=== PATIENT | female | born 1985 | race Caucasian/White ===

== ENCOUNTER 2018-07-15 17:43 | Emergency (ER) | payer SELFPAY, MEDICAID | END 2018-07-15 19:50 | disposition left against medical advice (07) | LOC: FTE 19:50 | DX: Z53.21 Procedure and treatment not carried out due to patient leaving prior to being seen by health care provider (principal) ==

== ENCOUNTER → 2018-07-15 | Outpatient (CLI) | payer MEDICAID | END | disposition home or self-care (01) | LOC: U/S 17:57 | DX: O36.70X0 Maternal care for viable fetus in abdominal pregnancy, unspecified trimester, not applicable or unspecified (principal); Z3A.00 Weeks of gestation of pregnancy not specified | CPT/HCPCS: 76801; 76817 ==

== ENCOUNTER 2018-12-12 10:13 | Inpatient (IN) | payer MEDICAID ==
[2018-12-12 10:54] LABS: ADD UMIC NO; UR ASCORBIC ACID NEGATIVE (NEGATIVE); UR BILIRUBIN (Dip) NEGATIVE (NEGATIVE); UR BLOOD (Dip) NEGATIVE (NEGATIVE); UR CLARITY CLEAR (CLEAR); UR COLOR YELLOW (YELLOW); UR GLUCOSE (Dip) NEGATIVE (NEGATIVE); UR KETONES (Dip) NEGATIVE (NEGATIVE); UR LEUKOCYTE ESTERASE (Dip) NEGATIVE Leu/ul (NEGATIVE); UR NITRITE (Dip) NEGATIVE (NEGATIVE); UR SPECIFIC GRAVITY (Dip) 1.016 (1.003-1.030); UR TOTAL PROTEIN (Dip) NEGATIVE (NEGATIVE); UR UROBILINOGEN (Dip) NEGATIVE (NEGATIVE)
[2018-12-12 11:24] LABS: ADD MAN DIFF? NO
[2018-12-12 11:26] LABS: BASOPHILS % 0.3 % (0.0-2.0); EOSINOPHILS % 0.2 % (0.0-7.0); HEMATOCRIT 33.9 % (37.0-47.0); HEMOGLOBIN 11.2 g/dl (12.0-16.0); LYMPHOCYTES # 1.6 10^3/ul (0.8-2.9); LYMPHOCYTES % 17.5 % (15.0-51.0); MEAN CORPUSCULAR HEMOGLOBIN 30.1 pg (29.0-33.0); MEAN CORPUSCULAR VOLUME 91.1 fl (82.0-101.0); MONOCYTE # 0.4 10^3/ul (0.3-0.9); MONOCYTES % 4.5 % (0.0-11.0); NEUTROPHILS % 76.8 % (39.0-77.0); PLATELET COUNT 324 10^3/UL (140-415); RED BLOOD COUNT 3.72 10^6/ul (4.20-5.40); RED CELL DISTRIBUTION WIDTH 12.9 % (11.5-14.5)
[2018-12-12 11:26] LABS: WHITE BLOOD COUNT 9.1 10^3/ul (4.8-10.8)
[2018-12-12 11:43] LABS: ALANINE AMINOTRANSFERASE 56 IU/L (13-69); ALBUMIN 3.8 g/dl (3.3-4.9); ALBUMIN/GLOBULIN RATIO 1.05; ALKALINE PHOSPHATASE 100 IU/L (42-121); ANION GAP 7 (5-13); ASPARTATE AMINO TRANSFERASE 43 IU/L (15-46); BILIRUBIN,INDIRECT 0.1 mg/dl (0-1.1); BILIRUBIN,TOTAL 0.1 mg/dl (0.2-1.3); BLOOD UREA NITROGEN 7 mg/dl (7-20); CALCIUM 9.7 mg/dl (8.4-10.2); CARBON DIOXIDE 26 mmol/L (21-31); CHLORIDE 105 mmol/L (97-110); CREATININE 0.51 mg/dl (0.44-1.00); Estimated GFR > 60 mL/min (>60); GLUCOSE 101 mg/dl (70-220); POTASSIUM 4.8 mmol/L (3.5-5.1); SODIUM 138 mmol/L (135-144); TOTAL PROTEIN 7.4 g/dl (6.1-8.1)
[2018-12-12] MEDS: TERBUTALINE 1 MG/ML INJ SC (15:14)
[2018-12-12] MEDS: LACTATED RINGER'S 1,000 ML IV ×3 (15:14→21:01)
[2018-12-12] MEDS: MEPERIDINE 50 MG INJ IV (16:38)
[2018-12-12] MEDS: AL HYDROX/MG HYDROX/SIMETH 30 ML CUP PO (20:57)
[2018-12-12] MEDS: FAMOTIDINE 20 MG INJ IV (21:11)
[2018-12-12] MEDS: MEPERIDINE 25 MG INJ IV (22:23)
[2018-12-13] MEDS: LACTATED RINGER'S 1,000 ML IV ×2 (05:18→13:31)
[2018-12-13] MEDS: FAMOTIDINE 20 MG INJ IV (09:00)
[2018-12-13] MEDS: PRENATAL VITAMIN PO (09:49)
== END 2018-12-13 18:45 | disposition home or self-care (01) | DRG 833 ==
LOC: OBT 10:13 → L-D 12-13 04:02 → OBT 18:40 → L-D 18:40
DX: O47.03 False labor before 37 completed weeks of gestation, third trimester (principal); Z3A.30 30 weeks gestation of pregnancy
CPT/HCPCS: 36415; 76817; 76818; 80053; 81003; 85025; 96360; 96361; 96372; 96375

== ENCOUNTER 2019-01-23 17:31 | Outpatient (CLI) | payer MEDICAID ==
[2019-01-23 18:11] LABS: ADD UMIC YES; UR ASCORBIC ACID NEGATIVE (NEGATIVE); UR BACTERIA FEW /HPF (NONE SEEN); UR BILIRUBIN (Dip) NEGATIVE (NEGATIVE); UR BLOOD (Dip) NEGATIVE (NEGATIVE); UR CLARITY CLOUDY (CLEAR); UR COLOR YELLOW (YELLOW); UR GLUCOSE (Dip) NEGATIVE (NEGATIVE); UR KETONES (Dip) NEGATIVE (NEGATIVE); UR LEUKOCYTE ESTERASE (Dip) TRACE Leu/ul (NEGATIVE); UR NITRITE (Dip) NEGATIVE (NEGATIVE); UR RBC 1 /HPF (0-5); UR SPECIFIC GRAVITY (Dip) 1.013 (1.003-1.030); UR SQUAMOUS EPITHELIAL CELL FEW /HPF (FEW); UR TOTAL PROTEIN (Dip) NEGATIVE (NEGATIVE); UR UROBILINOGEN (Dip) NEGATIVE (NEGATIVE); UR WBC 2 /HPF (0-5)
[2019-01-23 18:20] LABS: ADD MAN DIFF? NO
[2019-01-23 18:23] LABS: BASOPHILS % 0.2 % (0.0-2.0); EOSINOPHILS # 0.1 10^3/ul (0.0-0.5); EOSINOPHILS % 1.4 % (0.0-7.0); HEMATOCRIT 34.6 % (37.0-47.0); HEMOGLOBIN 11.6 g/dl (12.0-16.0); LYMPHOCYTES # 2.3 10^3/ul (0.8-2.9); LYMPHOCYTES % 25.2 % (15.0-51.0); MEAN CORPUSCULAR HEMOGLOBIN 29.7 pg (29.0-33.0); MEAN CORPUSCULAR HGB CONC 33.5 g/dl (32.0-37.0); MEAN CORPUSCULAR VOLUME 88.5 fl (82.0-101.0); MEAN PLATELET VOLUME 10.7 fl (7.4-10.4); MONOCYTE # 0.5 10^3/ul (0.3-0.9); MONOCYTES % 5.9 % (0.0-11.0); NEUTROPHILS % 66.9 % (39.0-77.0); PLATELET COUNT 306 10^3/UL (140-415); RED BLOOD COUNT 3.91 10^6/ul (4.20-5.40); RED CELL DISTRIBUTION WIDTH 13.5 % (11.5-14.5)
[2019-01-23 18:29] LABS: RUPTURE FETAL MEMBRANES NEGATIVE (NEGATIVE)
[2019-01-23 18:44] LABS: ALANINE AMINOTRANSFERASE 32 IU/L (13-69); ALBUMIN 3.7 g/dl (3.3-4.9); ALBUMIN/GLOBULIN RATIO 1.02; ALKALINE PHOSPHATASE 113 IU/L (42-121); ANION GAP 11 (5-13); ASPARTATE AMINO TRANSFERASE 25 IU/L (15-46); BILIRUBIN,INDIRECT 0.2 mg/dl (0-1.1); BILIRUBIN,TOTAL 0.2 mg/dl (0.2-1.3); BLOOD UREA NITROGEN 8 mg/dl (7-20); CALCIUM 9.9 mg/dl (8.4-10.2); CARBON DIOXIDE 23 mmol/L (21-31); CHLORIDE 104 mmol/L (97-110); CREATININE 0.48 mg/dl (0.44-1.00); Estimated GFR > 60 mL/min (>60); GLUCOSE 124 mg/dl (70-220); INR 0.91; POTASSIUM 3.8 mmol/L (3.5-5.1); PROTIME 12.4 Sec (11.9-14.9); SODIUM 138 mmol/L (135-144); TOTAL PROTEIN 7.3 g/dl (6.1-8.1); URIC ACID 4.1 mg/dl (3.1-7.9)
[2019-01-23 18:45] LABS: PARTIAL THROMBOPLASTIN TIME 27.7 Sec (23.0-35.0)
== END 2019-01-23 20:15 | disposition home or self-care (01) ==
LOC: OBT 17:31 → L-D 17:32 → OBT 20:15
DX: O42.913 Preterm premature rupture of membranes, unspecified as to length of time between rupture and onset of labor, third trimester (principal); Z3A.36 36 weeks gestation of pregnancy
CPT/HCPCS: 76815; 76818; 80053; 81001; 84112; 84560; 85025; 85384; 85610; 85730

== ENCOUNTER 2019-02-19 19:19 | Inpatient (IN) | payer MEDICAID ==
[2019-02-19 20:34] LABS: ADD UMIC YES; UR ASCORBIC ACID NEGATIVE (NEGATIVE); UR BACTERIA FEW /HPF (NONE SEEN); UR BILIRUBIN (Dip) NEGATIVE (NEGATIVE); UR BLOOD (Dip) NEGATIVE (NEGATIVE); UR CLARITY CLOUDY (CLEAR); UR COLOR YELLOW (YELLOW); UR GLUCOSE (Dip) NEGATIVE (NEGATIVE); UR KETONES (Dip) NEGATIVE (NEGATIVE); UR LEUKOCYTE ESTERASE (Dip) 3+ Leu/ul (NEGATIVE); UR MUCUS FEW /HPF (NONE SEEN); UR NITRITE (Dip) NEGATIVE (NEGATIVE); UR RBC 1 /HPF (0-5); UR SPECIFIC GRAVITY (Dip) 1.021 (1.003-1.030); UR SQUAMOUS EPITHELIAL CELL MODERATE /HPF (FEW); UR TOTAL PROTEIN (Dip) NEGATIVE (NEGATIVE); UR UROBILINOGEN (Dip) NEGATIVE (NEGATIVE); UR WBC 12 /HPF (0-5)
[2019-02-19] MEDS ORDERED: LACTATED RINGER'S 1,000 ML IV (21:55)
[2019-02-19] MEDS ORDERED: OXYTOCIN 30 UNITS/LR 500 ML IV ×2 (22:00)
[2019-02-19] MEDS ORDERED: CARBOPROST 250 MCG INJ IM (22:00)
[2019-02-19] MEDS: MINERAL OIL LIGHT 10 ML VIAL TOP (22:00)
[2019-02-19] MEDS ORDERED: MISOPROSTOL 200 MCG TAB PR (22:00)
[2019-02-19] MEDS ORDERED: IBUPROFEN 600 MG TAB PO (22:00)
[2019-02-19] MEDS ORDERED: BUTORPHANOL 2 MG INJ IV ×2 (22:00)
[2019-02-19] MEDS ORDERED: METHYLERGONOVINE 0.2 MG INJ IM (22:00)
[2019-02-19] MEDS: AL HYDROX/MG HYDROX/SIMETH 30 ML CUP PO (22:33)
[2019-02-19] MEDS: LACTATED RINGER'S 1,000 ML IV (22:57)
[2019-02-19 23:25] LABS: ADD MAN DIFF? NO
[2019-02-19 23:27] LABS: BASOPHILS % 0.2 % (0.0-2.0); EOSINOPHILS # 0.1 10^3/ul (0.0-0.5); EOSINOPHILS % 0.9 % (0.0-7.0); HEMATOCRIT 35.5 % (37.0-47.0); HEMOGLOBIN 11.9 g/dl (12.0-16.0); LYMPHOCYTES # 2.9 10^3/ul (0.8-2.9); LYMPHOCYTES % 28.1 % (15.0-51.0); MEAN CORPUSCULAR HEMOGLOBIN 29.9 pg (29.0-33.0); MEAN CORPUSCULAR HGB CONC 33.5 g/dl (32.0-37.0); MEAN CORPUSCULAR VOLUME 89.2 fl (82.0-101.0); MEAN PLATELET VOLUME 11.8 fl (7.4-10.4); MONOCYTE # 0.7 10^3/ul (0.3-0.9); NEUTROPHIL # 6.6 10^3/ul (1.6-7.5); NEUTROPHILS % 63.3 % (39.0-77.0); PLATELET COUNT 288 10^3/UL (140-415); RED BLOOD COUNT 3.98 10^6/ul (4.20-5.40); RED CELL DISTRIBUTION WIDTH 13.9 % (11.5-14.5)
[2019-02-19 23:27] LABS: WHITE BLOOD COUNT 10.4 10^3/ul (4.8-10.8)
[2019-02-19 23:45] LABS: ALANINE AMINOTRANSFERASE 20 IU/L (13-69); ALBUMIN 3.7 g/dl (3.3-4.9); ALBUMIN/GLOBULIN RATIO 1.15; ALKALINE PHOSPHATASE 122 IU/L (42-121); ANION GAP 9 (5-13); ASPARTATE AMINO TRANSFERASE 25 IU/L (15-46); BILIRUBIN,INDIRECT 0.2 mg/dl (0-1.1); BILIRUBIN,TOTAL 0.2 mg/dl (0.2-1.3); BLOOD UREA NITROGEN 13 mg/dl (7-20); CALCIUM 9.4 mg/dl (8.4-10.2); CARBON DIOXIDE 20 mmol/L (21-31); CHLORIDE 108 mmol/L (97-110); Estimated GFR > 60 mL/min (>60); GLUCOSE 108 mg/dl (70-220); POTASSIUM 3.9 mmol/L (3.5-5.1); SODIUM 137 mmol/L (135-144); TOTAL PROTEIN 6.9 g/dl (6.1-8.1); URIC ACID 4.9 mg/dl (3.1-7.9)
[2019-02-19 23:46] LABS: INR 0.88; PT RATIO 0.9
[2019-02-20 00:16] LABS: HEPATITIS B SURFACE ANTIGEN NEGATIVE (NEGATIVE)
[2019-02-20] MEDS: AL HYDROX/MG HYDROX/SIMETH 30 ML CUP PO ×2 (06:10→13:22)
[2019-02-20] MEDS: LACTATED RINGER'S 1,000 ML IV ×2 (06:10→13:36)
[2019-02-20] MEDS: OXYTOCIN 30 UNITS/LR 500 ML IV ×2 (09:54→17:59)
[2019-02-20] MEDS ORDERED: FENTAnyl 2MCG/ML-ROPIV 0.2% 100 ML (12:58)
[2019-02-20] MEDS ORDERED: NALOXONE (0.4 MG/ML) INJ IV (14:00)
[2019-02-20] MEDS ORDERED: FENTAnyl 2MCG/ML-ROPIV 0.2% 100 ML BAG EPI (14:00)
[2019-02-20] MEDS: ACETAMINOPHEN 500 MG TAB PO (18:01)
[2019-02-20] MEDS: KETOROLAC 30 MG INJ IV (18:37)
[2019-02-20] MEDS: LIDOCAINE 1% (MPF) 30 ML INJ INJ (18:37)
[2019-02-20 20:01] LABS: RAPID PLASMA REAGIN NONREACTIVE (NR)
[2019-02-20] MEDS: LACTATED RINGER'S 1,000 ML IV* (20:22)
[2019-02-20] MEDS ORDERED: MISOPROSTOL 200 MCG TAB PR (20:30)
[2019-02-20] MEDS ORDERED: OXYTOCIN 30 UNITS/LR 500 ML IV (20:30)
[2019-02-20] MEDS ORDERED: ZOLPIDEM 5 MG TAB PO (20:30)
[2019-02-20] MEDS ORDERED: HYDROCODONE/APAP (5/325) TAB PO ×2 (20:30)
[2019-02-20] MEDS ORDERED: CARBOPROST 250 MCG INJ IM (20:30)
[2019-02-20] MEDS ORDERED: DIBUCAINE 1% 30 GM OINT TOP (20:30)
[2019-02-20] MEDS: CEPHALEXIN 500 MG CAP PO ×2 (20:30→23:57)
[2019-02-20] MEDS ORDERED: METHYLERGONOVINE 0.2 MG INJ IM (20:30)
[2019-02-20] MEDS: IBUPROFEN 600 MG TAB PO ×2 (20:30→23:57)
[2019-02-20] MEDS: WITCH HAZEL/GLYCERIN PAD PR (21:24)
[2019-02-20] MEDS: SENNA/DOCUSATE NA (8.6MG/50MG) TAB PO (21:24)
[2019-02-20] MEDS: BENZOCAINE 20% 56 ML SPRAY TOP (21:24)
[2019-02-20] MEDS: MAGNESIUM HYDROXIDE 30ML CUP PO (21:25)
[2019-02-20] MEDS: LANOLIN HPA 1 PKT TOP (21:25)
[2019-02-21] MEDS: CEPHALEXIN 500 MG CAP PO ×4 (05:35→23:53)
[2019-02-21] MEDS: IBUPROFEN 600 MG TAB PO ×4 (05:36→23:53)
[2019-02-21 07:41] LABS: ADD MAN DIFF? NO
[2019-02-21 07:46] LABS: BASOPHILS % 0.3 % (0.0-2.0); EOSINOPHILS # 0.1 10^3/ul (0.0-0.5); EOSINOPHILS % 0.7 % (0.0-7.0); HEMOGLOBIN 10.6 g/dl (12.0-16.0); LYMPHOCYTES # 2.8 10^3/ul (0.8-2.9); LYMPHOCYTES % 23.1 % (15.0-51.0); MEAN CORPUSCULAR HEMOGLOBIN 29.4 pg (29.0-33.0); MEAN CORPUSCULAR HGB CONC 33.1 g/dl (32.0-37.0); MEAN CORPUSCULAR VOLUME 88.9 fl (82.0-101.0); MEAN PLATELET VOLUME 11.8 fl (7.4-10.4); MONOCYTE # 0.6 10^3/ul (0.3-0.9); MONOCYTES % 5.2 % (0.0-11.0); NEUTROPHIL # 8.4 10^3/ul (1.6-7.5); NEUTROPHILS % 70.3 % (39.0-77.0); PLATELET COUNT 230 10^3/UL (140-415); RED CELL DISTRIBUTION WIDTH 14.2 % (11.5-14.5)
[2019-02-21] MEDS: MAGNESIUM HYDROXIDE 30ML CUP PO ×2 (09:00→21:54)
[2019-02-21] MEDS: SENNA/DOCUSATE NA (8.6MG/50MG) TAB PO ×2 (10:08→21:54)
[2019-02-22] MEDS: CEPHALEXIN 500 MG CAP PO ×2 (05:29→12:10)
[2019-02-22] MEDS: IBUPROFEN 600 MG TAB PO ×2 (05:30→12:10)
[2019-02-22] MEDS: WITCH HAZEL/GLYCERIN PAD PR (05:48)
[2019-02-22] MEDS: BENZOCAINE 20% 56 ML SPRAY TOP (05:49)
[2019-02-22] MEDS: DIPHTH/TET/ACEL PERTUSS (ADULT) 0.5 ML VIAL IM* (07:40)
[2019-02-22] MEDS: MAGNESIUM HYDROXIDE 30ML CUP PO (09:00)
[2019-02-22] MEDS: SENNA/DOCUSATE NA (8.6MG/50MG) TAB PO (09:17)
[2019-02-22] MEDS: VARICELLA VACCINE LIVE/PF 1,350 UNIT/0.5 ML ML SC* (09:18)
[2019-02-22] MEDS: MEASLES,MUMPS,RUBELLA VACCINE INJ SC* (09:18)
== END 2019-02-22 15:00 | disposition home or self-care (01) | DRG 807 ==
LOC: OBT 19:19 → L-D 19:20 → PP1 02-20 19:51 → OBT 21:50 → L-D 21:50
PROC: 10D07Z6 Extraction of Products of Conception, Vacuum, Via Natural or Artificial Opening (ICD-10-PCS; principal; 2019-02-20)
PROC: 0W8NXZZ Division of Female Perineum, External Approach (ICD-10-PCS; 2019-02-20)
DX: O48.0 Post-term pregnancy (principal); O76 Abnormality in fetal heart rate and rhythm complicating labor and delivery; Z37.0 Single live birth; Z3A.40 40 weeks gestation of pregnancy
CPT/HCPCS: 62322; 76815; 76818; 80053; 81001; 84560; 85025; 85610; 85730; 86592; 86850; 86900; 86901; 87086; 87340; 90716; 99464